=== PATIENT | male | born 1965 | race Caucasian/White ===

== ENCOUNTER 2019-07-21 12:45 | Day surgery (SDC) | payer BC ==
[2019-07-16 13:55] VITALS: BMI 38.5
[~2019-07-21 12:45] MED LIST: LACTATED RINGERS 1,000 ML IV SCH; LIDOCAINE 1% 20 ML VIAL (10MG/ML) FOR IV START INTRADERMA PRN
[2019-07-21 13:22] VITALS: TEMP 96.9
--- NOTE | 2019-07-21 13:24 | P.GSHP ---
History of Present Illness H&P Date: 07/21/19 Chief Complaint: Internal and external hemorrhoids This a 53-year-old male referred from Dr. Terrell. Patient issues with hemorrhoids. Patient complaints of anal pain, bleeding and itching. He presents today for colonoscopy. Past Medical History Additional Past Medical History / Comment(s): hemmorhoids History of Any Multi-Drug Resistant Organisms: None Reported Additional Past Surgical History / Comment(s): hemmorhoidectomy, birthmark removed from shoulder, rt neck benign growth removed Past Anesthesia/Blood Transfusion Reactions: Previous Problems w/ Anesthesia Additional Past Anesthesia/Blood Transfusion Reaction / Comment(s): "very scared of needles, can pass out" Smoking Status: Former smoker Medications and Allergies Home Medications Medication Instructions Recorded Confirmed Type Ibuprofen [Motrin Ib] 200 mg PO Q6H PRN 07/16/19 07/21/19 History Allergies Allergy/AdvReac Type Severity Reaction Status Date / Time aspirin Allergy Swelling/li Verified 07/21/19 13:08 ps Surgical - Exam Vital Signs Temp Pulse Resp Pulse Ox 96.9 F L 87 18 96 07/21/19 13:15 07/21/19 13:15 07/21/19 13:15 07/21/19 13:15 - General well developed, well nourished, no distress - Eyes PERRL - ENT normal pinna - Neck no masses - Respiratory normal expansion - Cardiovascular Rhythm: regular - Abdomen Abdomen: soft, non tender Assessment and Plan Assessment: Anal pain, bleeding and itching Hemorrhoids We'll perform colonoscopy
[2019-07-21] MEDS ORDERED: LIDOCAINE 1% INJ 10MG/ML (20 ML MDV) ONE (13:25)
[2019-07-21] MEDS ORDERED: PROPOFOL 10 MG/ML 20 ML VIAL IV ONE (13:25)
--- NOTE | 2019-07-21 13:39 | P.OP ---
Date of Procedure: 07/21/19 Preoperative Diagnosis: Hemorrhoids Postoperative Diagnosis: Internal hemorrhoids Diverticulosis Procedure(s) Performed: Colonoscopy Anesthesia: MAC Surgeon: Aj Godinez Pathology: none sent Condition: stable Disposition: PACU Description of Procedure: The patient's placed on the endoscopy table lateral position. He received IV sedation. Digital rectal exam was performed which revealed internal hemorrhoids. Flexible colonoscope was then placed patient anus and passed throughout the entire colon. The ileocecal valve sutures. The cecum, ascending and transverse colon appeared normal. In the descending and sigmoid colon there was severe diverticulosis. Scope was then brought back into the rectum and this appeared normal. Scope was withdrawn for patient and there is internal hemorrhoids noted.
[2019-07-21 14:03] VITALS: BP 122/77; PULSE 75; RESP 20
== END 2019-07-21 14:10 | disposition home or self-care (01) ==
LOC: ORWHC2ENDO 12:45
PROVIDERS: ATTEND Surgery
DX: K64.8 Other hemorrhoids (principal); K57.30 Diverticulosis of large intestine without perforation or abscess without bleeding; E66.01 Morbid (severe) obesity due to excess calories; Z68.38 Body mass index [BMI] 38.0-38.9, adult; Z87.891 Personal history of nicotine dependence; Z88.6 Allergy status to analgesic agent
CPT/HCPCS: 45378; J2001; J2704